=== PATIENT | female | born 1980 | race Caucasian/White ===

== ENCOUNTER 2019-05-22 14:17 | Emergency (ER) | payer OTHER, SELFPAY ==
--- NOTE | 2019-05-22 14:38 | ED.GENADULT ---
HPI - General Adult General Chief complaint: Upper Respiratory Infection Stated complaint: Flu like symptoms Time Seen by Provider: 05/22/19 14:50 Source: patient Mode of arrival: ambulatory Limitations: no limitations History of Present Illness HPI narrative: 39-year-old female patient presents to the [facility] with complaints of cold symptoms that started last night. Patient states that she started having a sore throat last night and had a low-grade 99 fever last night and woke up today feeling worse with complaints of continued low-grade fevers, sore throat, body aches and chills. 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 Patient states that she did not get a flu shot this year. Patient states that she did take some Tylenol Cold and flu for her symptoms. Patient denies any abdominal pain, nausea, vomiting or diarrhea. Patient states that her last period was a couple of days ago. Patient denies or breast-feeding at this time. Related Data Home Medications Medication Instructions Recorded Confirmed No Home Medications 05/22/19 05/22/19 Allergies Allergy/AdvReac Type Severity Reaction Status Date / Time No Known Allergies Allergy Unverified 12/31/15 14:30 Review of Systems Review of Systems: Narrative: CONSTITUTIONAL: Positive subjective low-grade fever, chills, body aches and sweats. EYES: Denies visual changes, redness, or discharge. ENT: Denies rhinorrhea, congestion, positive sore throat, denies otalgia. CARDIOVASCULAR: Denies chest pain, palpitations, or edema. RESPIRATORY: Denies cough or dyspnea. GASTROINTESTINAL: Denies abdominal pain, nausea, vomiting, or diarrhea. GENITOURINARY: Denies dysuria or hematuria. SKIN: Denies rash or itching. MUSCULOSKELETAL: Denies back pain, joint pain, or myalgia. NEUROLOGIC: Denies headache, numbness, or weakness. PSYCHIATRIC: Denies anxiety or depression. PMFSH Comments At the time of my signature I agree with nursing past medical history, surgical, social, and family history. There is no relevant family history pertinent to the presenting complaint. Exam Narrative: Exam Narrative: GENERAL: ill-appearing, well-nourished, and in no acute distress. HEAD: Normocephalic, atraumatic. No tenderness noted to frontal and maxillary sinuses on palpation EYES: PERRLA and EOMI. ENT: Nares clear, no rhinorrhea or epistaxis. Mucous membranes moist. Posterior pharynx with no erythema, tonsillar margin, exudates or lesions present. Bilateral TMs are clear no erythema or foreign bodies in the canal. NECK: Supple. No lymphadenopathy CHEST: Clear to auscultation. No respiratory distress. HEART: Regular rate and rhythm. No murmur heard. Normal peripheral pulses. ABDOMEN: Soft, nontender, nondistended, normal active bowel sounds. EXTREMITIES: Normal range of motion. No edema. SKIN: Warm, dry, no rash. NEURO: No focal deficits. Alert and oriented x3. Course Reevaluation(s) Reevaluation #1: Notify patient she is negative today for strep and flu. Discussed with her that this is probably some type of virus that is causing her symptoms and she can take [id number] Tylenol, Motrin, increase her fluids and lots of rest. Discussed with her I did go ahead and write her off of work for today and tomorrow and if she has worsening symptoms such as chest pain, shortness of breath or high fever she would need to go the ER for further evaluation and treatment. Patient verbalized understanding denies any other questions or concerns at this time. Date: 05/22/19 Time: 15:09 Vital Signs Vital signs: Vital Signs Temperature 37.6 C 05/22/19 14:40 Pulse Rate 104 H 05/22/19 14:40 Respiratory Rate 16 05/22/19 14:40 Blood Pressure 137/78 05/22/19 14:40 Pulse Oximetry 100 05/22/19 14:40 Temperature 37.6 C 05/22/19 14:40 Pulse Rate 104 H 05/22/19 14:40 Respiratory Rate 16 05/22/19 14:40 Blood Pressur
[2019-05-22 14:40] VITALS: BP 137/78; PULSE 104; RESP 16; TEMP 37.6; O2SAT 100
== END 2019-05-22 15:10 | disposition home or self-care (01) ==
PROVIDERS: Emergency Provider Nurse Practitioner Family; PCP Internal Medicine Infectious Disease
DX: J06.9 Acute upper respiratory infection, unspecified (principal); J02.9 Acute pharyngitis, unspecified
CPT/HCPCS: 87081; 87804; 87880; 99203; G0463